=== PATIENT | female | born 1995 | race Caucasian/White ===

== ENCOUNTER 2019-08-30 14:38 | Emergency (ER) | payer OTHER ==
[~2019-08-30] VITALS: Ht 162.6 cm; Wt 51.3 kg
[2019-08-30 15:12] VITALS: Ht 162.6 cm; Wt 51.3 kg
[2019-08-30 16:55] VITALS: BP 108/65
== END 2019-08-30 16:55 | disposition home or self-care (01) ==
LOC: ED 14:38
DX: J10.1 Influenza due to other identified influenza virus with other respiratory manifestations (principal)
CPT/HCPCS: 87804